=== PATIENT | male | born 1990 | race Caucasian/White ===

== ENCOUNTER 2023-04-15 22:11 | Emergency (ER) | payer SELFPAY ==
[~2023-04-15] VITALS: Ht 172.7 cm; Wt 90.7 kg
[2023-04-15 22:14] VITALS: BP_SYST 150; PULSE 94; RESP 17; TEMP 98; O2SAT 96
[2023-04-15] MEDS ORDERED: LORazepam 2 MG/ML VIAL IM ONE (22:45)
[2023-04-15] MEDS ORDERED: MORPHINE 4 MG INJ. 4 MG/ML VIAL IM ONE (22:45)
[2023-04-15] MEDS ORDERED: NAPR-690 PO (23:38)
[2023-04-15 23:45] VITALS: BP_SYST 133; PULSE 69; RESP 18; TEMP 98.7; O2SAT 96
== END 2023-04-15 23:45 | disposition home or self-care (01) ==
LOC: SED 22:11
DX: S09.90XA Unspecified injury of head, initial encounter (principal); F41.9 Anxiety disorder, unspecified; Z79.899 Other long term (current) drug therapy; W18.2XXA Fall in (into) shower or empty bathtub, initial encounter; Y93.89 Activity, other specified; Y92.89 Other specified places as the place of occurrence of the external cause; Y99.8 Other external cause status
CPT/HCPCS: 99285; 70450; 76376; 96372; J2060; J2270